=== PATIENT | female | born 1935 | race Caucasian/White ===

== ENCOUNTER → 2018-02-10 | Outpatient (CLI) | payer OTHER ==
[~2018-02-10] VITALS: Ht 177.8 cm; Wt 66.7 kg
[~2018-02-10] MED LIST: CALCITRATE200 MG; CENTRUM SILVER1 EAC4 PO; COLACE100 MG PO; KEFLEX500 M1 PO; LOPRESSOR25 PO; VITAMIN D3400 UNIT; ZOCOR20 MG PO
[2018-02-10 12:21] LABS: HEMATOCRIT 43.5 % (37.0-47.0); HEMOGLOBIN 14.4 gm/dL (12.0-15.0); MCH 31.7 pg (26.0-34.0); MCV 96.3 fL (80.0-100.0); MPV 8.9 fl. (7.2-11.1); RBC 4.52 mil/uL (4.20-5.00); RDW-CV 13.3 % (10.5-14.5); WBC 8.6 thou/uL (4.0-11.0)
[2018-02-10 12:31] VITALS: BP 160/59
[2018-02-10 12:34] LABS: CALCIUM 8.8 mg/dL (8.5-10.1); CREATININE 1.2 mg/dL (0.6-1.3); POTASSIUM 3.9 mmol/L (3.5-5.1)
[2018-02-10 12:35] LABS: APTT 30.1 Seconds (25.0-31.3); PROTIME 10.6 Seconds (9.20-11.50)
[2018-02-10 12:38] LABS: ALBUMIN 3.8 g/dL (3.4-5.0); TOTAL BILIRUBIN 0.7 mg/dL (<0.1-1.0); TOTAL PROTEIN 7.3 g/dL (6.4-8.2)
[2018-02-10 14:45] VITALS: BP 120/78
[2018-02-10 15:00] VITALS: BP 138/72
[2018-02-10 15:15] VITALS: BP 130/67
[2018-02-10 15:30] VITALS: BP 132/76
--- NOTE | 2018-02-10 16:41 | EKG ---
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: : 1935 Requested By: Devon Holloway Order Number: [id number] Debora MD: Howard Fuentes Measurements Intervals [place] Rate: 57 P: 74 MD: 153 QRS: 58 QRSD: 91 T: 22 QT: 433 QTc: 422 Interpretive Statements Sinus rhythm Ventricular trigeminy Consider left ventricular hypertrophy No previous ECG available for comparison Electronically Signed On 02-10-2018 16:41:08 CDT by Howard Fuentes [email or web address] <ELECTRONICALLY SIGNED> By: Howard Fuentes MD, [facility] 02/10/18 1641 [id number] 1256 Howard Fuentes MD, FACC /EPI
--- NOTE | 2018-02-15 11:21 | CARD ---
[address] [address] CARDIAC CATH REPORT Name: GERRY ELIZALDE [id number] Admission: 02/10/18 Attend Phys: Devon Holloway MD Discharge: Date of : 37 Report #: [id number] THIS REPORT FOR: //name// APPROVED REPORT Study performed: 02/10/2018 13:06:36 Patient Status: Out-Patient Room #: Event Personnel: Devon Holloway Net Manager, Shelby Betts RN Quarter Section Ironer, Alejandra Bryant Monitor, Thierry Reynoso (R) Jennie Meyers Jessica RTJuvenal Monitor Exam: Insertion of Dual Chamber Permanent Pacemaker Indications: severe symptomatic bradycardia with frequent PVCs. The patient is a 82 year-old female with a history of severe symptomatic bradycardia with frequent PVCs. Conscious Sedation Start time: 13:55 End Time: 14:15 Fentanyl 75 mcg Versed 3 mg Implanted Devices: Biotronik Eluna 8 DR T pro-MRI, model #522279, serial #[id number]. Biotronik Solia S, model #696466, serial #[id number] ventricular lead. Biotronik Solia S 53, model #225683, serial #[id number] atrial lead. Procedure The patient underwent informed consent. We discussed the details of the procedure including the risks, which include, but not limited to bleeding, infection, vascular damage, cardiac perforation, and pneumothorax. After informed consent was obtained the patient was brought to the interventional radiology lab. The area of the left chest was prepped and draped in sterile fashion. Local anesthesia was achieved with 1% lidocaine. Next after an initial incision was made a device pocket was formed over the left pectoralis muscle using electrocautery and blunt dissection. Next the left subclavian vein was accessed with a micropuncture kit and ultimately a safety J guidewire advanced to the right atrium under fluoroscopic guidance. The micropuncture kit was utilized a second time to access the left subclavian vein a second time and a second safety J guidewire advanced to the right atrium under fluoroscopic guidance. Next a 7 [place] [address] CARDIAC CATH REPORT Name: GERRY ELIZALDE Room: [facility]#: [id number] Admission: 02/10/18 Attend Phys: Devon Holloway MD Discharge: Date of : 37 Report #: [id number] advanced over one of the guidewires. The dilator and guidewire were removed and a ventricular lead advanced to a secure position within the right ventricular apex. The lead was actively fixed. Sensing and thresholds were checked and deemed to be satisfactory. There was no evidence of diaphragmatic stimulation with maximum output pacing. The tear-away introducer was then removed. Next a second 7 Slovak tear-away introducer was advanced over the remaining guidewire. The dilator and guidewire were removed and an atrial lead advanced to a secure position within the right atrial appendage. The lead was actively fixed. Sensing and thresholds were checked and deemed to be satisfactory. There was no phrenic nerve stimulation with maximum output pacing. The tear-away introducer was then removed. Next after assuring adequate slack the atrial and ventricular leads were then secured within the device pocket using the designated cuffs and 0 silk suture. The pocket was then flushed with antibiotic solution. Next a dual-chamber pulse generator was attached to the atrial and ventricular leads. The redundant leads and generator were placed within the device pocket. The deep tissue was closed with interrupted stitches of 2-0 Vicryl suture. The skin incision was then closed with a single subcuticular stitch of 4-0 Vicryl. Several Steri-Strips were placed across the incision. A sterile Telfa dressing was then covered with a Tegaderm. The patient tolerated the procedure well without complication. Electrode Parameters P Wave: 1.50 mV R Wave: 10.40 mV Atrial Threshold: 1.2 V at 0.40 ms Ventricular Threshold: 0.8 V at 0.40 ms Atrial Resistance: 916 ohms Ventricular Resistance: 526 ohms Complications The patient tolerated the procedure well and there were no complications associated with the procedure. Conclusion 1. Severe symptomatic bradycardia with frequent PVCs. 2. Successful placement of a dual-chamber pacemaker Recommendations 1. Follow-up site check in one week. 2. Follow-up pacemaker interrogation in one month. <ELECTRONICALLY SIGNED> By: Devon Holloway MD, FACC 02/15/181120 20 20[facility] centerthalia Holloway MD, FACC /INF
== END | disposition home or self-care (01) ==
LOC: M.CL 11:47
PROVIDERS: Internal Medicine Cardiovascular Disease
DX: I49.5 Sick sinus syndrome (principal); I10 Essential (primary) hypertension; E78.00 Pure hypercholesterolemia, unspecified; Z79.899 Other long term (current) drug therapy; Z98.890 Other specified postprocedural states; Z79.01 Long term (current) use of anticoagulants